=== PATIENT | female | born 1940 | race Caucasian/White ===

== ENCOUNTER 2018-08-24 12:38 | Observation (INO) | payer BC ==
[2018-08-24 12:44] VITALS: BMI 27.7
--- NOTE | 2018-08-24 14:29 | PDOC ---
History of Present Illness - General Chief Complaint: Blurry Vision Stated Complaint: RT EYE VISION BLURRY Time Seen by Provider: 08/24/18 13:36 History Source: Patient Exam Limitations: No Limitations - History of Present Illness Initial Comments: 08/24/18 14:05 This is a 77 YOF with h/o glaucoma, cataract replacement to left eye, 15 year h/ o headaches (very few in the past 3 years), TMJD, cervical disc bulges, and MRI done ~4 months ago (which the patient's neurosurgeon thought was concerning for mini-strokes but her neurologist disagreed and was not concerned) who p/w abrupt 4-minute episode of black defect in the upper visual holden of her right eye, which occurred at the end of druze about 30 minutes ago and resolved with two aspirin which she put under her tongue at the onset. She denies any additional symptoms: no f/c/n/v/d/c, CP/SOB, n/t/w, SOSA, neck pain, eye pain, recent falls/trauma, or any other recent symptoms. She has never had these symptoms before. She has an operater (Garret Cardona). NIH Stroke Scale - Last Known Well Date/Time & Onset Date Last Known Well: 08/24/18 Time Last Known Well: 13:00 - Initial Evaluation Level of consciousness: Alert Ask patient the month and their age: Answers both correctly Ask patient to open & close eyes; make fist and let go: Obeys both correctly Best gaze (horizontal eye movement): Normal Visual field testing: No visual field loss Facial paresis (Show teeth/raise eyebrows/close eyes tight): Normal symmetrical movement Motor Function: Left Arm: Normal Motor Function: Right Arm: Normal (extends arm 90 (or 45) degrees for 10 seconds without drift Motor Function: Left Leg: Normal (extends leg 30 degrees for 5 seconds without drift) Motor Function: Right Leg: Normal (extends leg 30 degrees for 5 seconds without drift) Limb Ataxia: No ataxia Sensory(Use pinprick test arms,legs,trunk,face/side to side): Normal Best language (Describe picture, name items, read sentences): No Aphasia Dysarthria (read several words): Normal articulation Extinction and Inattention: No abnormality - Total Score NIH Stroke Scale Score: 0 Past History - Past Medical History Allergies/Adverse Reactions: Allergies Allergy/AdvReac Type Severity Reaction Status Date / Time cat dander Allergy Verified 08/24/18 17:47 ASHOK Allergy Unknown Uncoded 08/24/18 17:29 CAT Allergy Uncoded 08/24/18 12:44 DUST Allergy Uncoded 08/24/18 12:44 MOLD Allergy Uncoded 08/24/18 12:44 Home Medications: Ambulatory Orders Ascorbic Acid [Vitamin C] 1 mg PO DAILY 09/25/13 Calcium Carbonate/Vitamin D3 [Calcium 600-Vit D3 200 Tablet] 1 each PO DAILY Docosahexanoic Acid/Epa [Fish Oil Softgel] 1 each PO DAILY 09/25/13 Flaxseed [Flaxseed Oil] 1,000 mg PO DAILY 09/25/13 Aspirin [ASA -] 325 mg PO DAILY #30 tablet 08/25/18 Atorvastatin Ca [Lipitor] 20 mg PO HS #30 tablet 08/25/18 Anemia: No Asthma: No Cancer: No Cardiac Disorders: No CVA: No COPD: No CHF: No Dementia: No GI Disorders: Yes (COLONIC POLYPS) Disorders: No HTN: No Hypercholesterolemia: No Liver Disease: No Seizures: No Thyroid Disease: No Other medical history: glaucoma - Surgical History Abdominal Surgery: Yes Appendectomy: No Cardiac Surgery: No Cholecystectomy: No Lung Surgery: No Neurologic Surgery: No Orthopedic Surgery: No - Suicide/Smoking/Psychosocial Hx Smoking History: Never smoked Have you smoked in the past 12 months: No If you are a former smoker, when did you quit?: 1973 Information on smoking cessation initiated: No Hx Alcohol Use: No Drug/Substance Use Hx: No Substance Use Type: None Review of Systems - Review of Systems Able to Perform ROS?: Yes Constitutional: No: Chills, Fever, Unexplained wgt Loss HEENTM: Yes: Recent change in vision (resolved). No: Nose Congestion, Throat Pain Respiratory: No: Cough, Shortness of Breath Cardiac (ROS): No: Chest Pain, Palpitations ABD/GI: No: Constipated, Diarrhea, Nausea, Vomiting : No: Burning, Dysuria Musculoskeletal: No: Back Pain, Neck Pain Integumentary: No: Bruising, Rash Neurological: No: Headache, Numbness, Tingling, Weakness, Dizziness Endocrine: No: Unexplained Weight Gain, Unexplained Weight Loss *Physical Exam - Vital Signs Last Vital Signs Temp Pulse Resp BP Pulse Ox 97.3 F L 73 18 132/70 99 08/24/18 12:39 08/24/18 12:39 08/24/18 12:39 08/24/18 12:39 08/24/18 12:39 08/24/18 18:12 GENERAL: nontoxic and well-appearing older adult female, nourished, A/Ox4, no acute distress, speaking in full sentences, answers questions appropriately HENT: Moist mucous membranes, no posterior pharyngeal erythema, no tonsillar swelling or exudates, no cervical lymphadenopathy EYES: Left cataract replacement with tiny iris deformity at 12 o'clock stated 2/ 2 the surgery, no scleral icterus or injection, visual holden all intact, able to track in all directions without difficulty or pain, EOMI, no nystagmus, PERRLA, funduscopic exam is difficult given lack of dilating drops (patient has stated h/o glaucoma), visual acuity 20/50 on the left and <20/50 on the right ( worse on the right), NECK: No midline ttp, no spinal stepoff or deformity, full ROM, supple CARDIOVASCULAR: Regular rate and rhythm, normal S1S2, MGR, radial and DP pulses 2+ and symmetric, capillary refill <2 seconds, extremities warm and well- perfused Chest wall: Right medial clavicle slight prominence which patient states is chronic, normal appearance, no rash, no bruising, no costal stepoff or deformity , nontender to compression LUNGS/RESPIRATORY: No respiratory distress, normal and symmetric chest movements during respirations, lungs CTA bilaterally, equal breath sounds, no cyanosis, no nail clubbing GI/ABDOMEN: Normal symmetric appearance, normoactive bowel sounds, soft, no tenderness to palpation, no midline pulsatile masses, no palpated organomegaly BACK: No midline ttp or stepoff or deformity of thoracic or lumbar spine EXTREMITIES: distal pulses 2+, warm and well-perfused, no LE edema SKIN: Warm and dry, no pallor, no jaundice, no bruising, no rash, no skin breakdown, no cuts, no lesions NEUROLOGICAL: GCS 15, NIHSS is 0, CN II-XII grossly intact EXCEPT there is moderate rightward deviation on tongue protrusion, ambulating with normal gait, moving all extremities, 5/5 strength proximally and distally, no facial droop, no decreased sensation Procedures - Bedside Ultrasound Bedside Ultrasound: Ocular Remarks: Study: right ocular US Indication: upper visual field blackness, since resolved Findings: lens appears normal without detachment, no retinal detachment, no e/o vitreous hemorrhage, nl optic nerve diameter Conclusion: normal right ocular ultrasound ED Treatment Course - LABORATORY CBC & Chemistry Diagram: 08/25/18 06:12 08/25/18 06:12 - RADIOLOGY Radiology Studies Ordered: Category Date Time Status CHEST X-RAY PORTABLE* [RAD] Stat Radiology 08/24/18 14:03 Ordered Medical Decision Making - Medical Decision Making 08/24/18 1430 Adult patient p/w acute onset right eye vision blackness to the upper visual holden. No additional symptoms, lasted about 4 minutes, she put 2 baby ASA under her tongue. Symptoms resolved now, never any prior similar episodes. Initial Vital Signs Temp Pulse Resp BP Pulse Ox 97.3 F L 73 18 132/70 99 08/24/18 12:39 08/24/18 12:39 08/24/18 12:39 08/24/18 12:39 08/24/18 12:39 Exam: As noted in Physical Exam section. DDX IBNLT: retinal tear/detachment, amarosis fugax, CVA/TIA, unlikely any of the following: vertebral or carotid dissection, subclavian steal, etc. W/U ordered: Head CT, CXR, EKG, labs as noted below. TX ordered: IV, O2, Monitor, IVF POCUS: normal right ocular US as noted in procedures EKG: Reviewed; results as noted in ECG Review section. CXR: Nothing acute Laboratory Tests 08/24/18 08/24/18 08/24/18 14:20 14:20 14:20 WBC 4.1 RBC 4.13 Hgb 13.6 Hct 39.0 MCV 94.3 MCH 32.8 MCHC 34.8 RDW 13.4 Plt Count 172 MPV 8.0 Absolute Neuts (auto) 2.5 Neutrophils % 61.0 Lymphocytes % 28.3 Monocytes % 7.8 Eosinophils % 2.3 Basophils % 0.6 Nucleated RBC % 0 PT with INR 11.20 INR 0.99 Sodium 137 Potassium 4.3 Chloride 103 Carbon Dioxide 31 Anion Gap 3 L BUN 20 H Creatinine 0.7 Creat Clearance w eGFR > 60 Random Glucose 89 Calcium 8.9 Total Bilirubin 0.4 AST 27 ALT 27 Alkaline Phosphatase 76 Total Protein 7.6 Albumin 4.0 08/24/18 15:59 Reassessment: Patient states no recurrence of symptoms, repeat neuro exam unchanged. 08/24/18 17:[address] Banuelos who also is concerned for amarosis fugax. Recommends Aggranox, ESR, CRP r/o GCA; these are ordered. Also Tele/Obs. Microblog is sent to [facility] for admission (for PCP Dr. Harmeet Franks). Blank Decision to Admit order is placed. Consult order placed for Dr. Banuelos. 08/24/18 18:[address] I [address] over to [address] department to check on the status of the patient's study. sleep lab technologist on states that there ate a total of 5-6 people waiting in line. Awaiting results of head CT to admit patient. 08/24/18 18:[address] Banuelos (who is seeing the patient in the ED) the head CT is negative for acute pathology. The Pt is unsafe for discharge at this time. They require further hospital observation, workup, and treatment. Microblog sent to [facility] for admission. Blank Decision to Admit order is placed per ED protocol. Patient needs Tele Obs per Dr. Banuelos. 08/24/18 19:16 Spoke with admitting team member services representative Judah Salvador. In agreement Pt to be admitted. Decision to Admit order corrected with admitting team covering attendings name (Dr. Lainez). Dr. Banuelos here seeing the patient in the ED. He kindly wheels her back from CT. Final report HCT is negative for acute pathology. Repeat NIHSS is still 0. *DC/Admit/Observation/Transfer Diagnosis at time of Disposition: Vision loss of right eye - Discharge Dispostion Condition at time of disposition: Stable Decision to Admit order: Yes - Prescriptions - Referrals - Patient Instructions - Post Discharge Activity
[2018-08-24 14:34] LABS: BASO % 0.6 % (0-2.0); EOS % 2.3 % (0-4.5); HEMOGLOBIN 13.6 GM/dL (10.7-15.3); LYMPH % 28.3 % (8-40); MCH 32.8 pg (25.7-33.7); MCHC 34.8 g/dl (32.0-36.0); MEAN CELL VOLUME 94.3 fl (80-96); MONO % 7.8 % (3.8-10.2); PLATELET COUNT 172 K/MM3 (134-434); RBC 4.13 M/mm3 (3.60-5.2); RDW 13.4 % (11.6-15.6); WHITE BLOOD COUNT 4.1 K/mm3 (4.0-10.0)
[2018-08-24 14:55] LABS: INR 0.99 (0.83-1.09); PROTHROMBIN TIME (PATIENT) 11.2 SEC (9.7-13.0)
--- NOTE | 2018-08-24 15:07 | PDOC ---
Attending Attestation - Resident Resident Name: Nelly Marquis - ED Attending Attestation I have performed the following: I have examined & evaluated the patient, The case was reviewed & discussed with the resident, I agree w/resident's findings & plan, Exceptions are as noted - HPI HPI: 08/24/18 14:58 The patient is a 77 year old female with past medical history of hyperlipidemia , b/l glaucoma, left cataract surgery, who presents to the ED after an episode of transient loss of vision about 30 minutes prior to arrival. Patient states she was [place] [employer] when she experienced darkening of her vision in the upper, lower and lateral visual holden of her R eye. She states the episode lasted four minutes and resolved on its own. She denies any other associated symptoms at the time and reports taking two aspirin en route to the hospital. In the ED, she reports her vision has improved but saw some flashes of light in her right eye but denies any other visual changes, headaches, or focal neurological deficits. Denies any chest pain, SOB, fevers or chills. Foreman/Project Manager: Dr. Garret Albarran - Physicial Exam PE: 08/24/18 14:59 GENERAL: Awake, alert, and fully oriented, in no acute distress. HEAD: No signs of trauma EYES: PERRLA, EOMI, sclera anicteric, conjunctiva clear, visual holden intact ENT: Auricles normal inspection, hearing grossly normal, nares patent, oropharynx clear without exudates. Moist mucosa NECK: Nontender, no stepoffs, Normal ROM, supple, no lymphadenopathy, JVD, or masses LUNGS: Breath sounds equal, clear to auscultation bilaterally. No wheezes, and no crackles HEART: Regular rate and rhythm, normal S1 and S2, no murmurs, rubs or gallops ABDOMEN: Soft, nontender, normoactive bowel sounds. No guarding, no rebound. No masses EXTREMITIES: Normal range of motion, no edema. No clubbing or cyanosis. No cords, erythema, or tenderness NEUROLOGICAL: Cranial nerves II through XII intact. 5/5 strength and sensation in all extremities, Normal speech, normal gait, normal cerebellar function SKIN: Warm, Dry, normal turgor, no rashes or lesions noted. - Medical Decision Making 08/24/18 15:00 77 F with transient visual disturbance in R eye, now resolved. Pt with no visual field deficits currently. Suspect retinal detachment. Pt with no eye pain or other signs of acute glaucoma. Possible amaurosis fugax, though pt has no other neuro deficits. Neurologically non-focal on exam. - Labs - CT head - Bedside ocular US 08/24/18 18:15 Ocular US unremarkable. Labs wnl 08/24/18 18:44 CT normal Discussed case with Dr. Banuelos, who recommends tele obs admission for CVA work up
[2018-08-24 15:08] LABS: ALK PHOS 76 U/L (45-117); ANION GAP 3 MMOL/L (8-16); BILIRUBIN,TOTAL 0.4 mg/dL (0.2-1); BLOOD UREA NITROGEN 20 mg/dL (7-18); CALCIUM 8.9 mg/dL (8.5-10.1); CHLORIDE 103 mmol/L (98-107); CO2 31 mmol/L (21-32); CREATININE 0.7 mg/dL (0.55-1.3); GLUCOSE,RANDOM 89 mg/dL (74-106); POTASSIUM 4.3 mmol/L (3.5-5.1); SGOT/AST 27 U/L (15-37); SGPT/ALT 27 U/L (13-61); SODIUM 137 mmol/L (136-145); TOT PROT 7.6 g/dl (6.4-8.2)
--- NOTE | 2018-08-24 16:59 | EKG ---
Test Reason : Blood Pressure : / mmHG Vent. Rate : 062 BPM Atrial Rate : 062 BPM P-R Int : 170 ms QRS Dur : 072 ms QT Int : 376 ms P-R-T Axes : 058 -10 013 degrees QTc Int : 381 ms POOR DATA QUALITY, INTERPRETATION MAY BE ADVERSELY AFFECTED NORMAL SINUS RHYTHM SEPTAL INFARCT , AGE UNDETERMINED ABNORMAL ECG NO PREVIOUS ECGS AVAILABLE Confirmed by MD Joni, Waylon ([id number]) on 08/24/2018 4:58:33 PM Referred By: Confirmed By:Waylon Quinones MD
[2018-08-24] MEDS ORDERED: ASPIRIN/DIPYRIDAMOLE 25 MG/200 MG CAPSULE (FP) PO ONE (17:21)
[2018-08-24] MEDS ORDERED: ASPIRIN/DIPYRIDAMOLE 25 MG/200 MG CAPSULE (FP) ONE (18:40)
--- NOTE | 2018-08-24 20:08 | CON.NEURO ---
Consult Consult Specialty:: Lakisha Referred by:: ED - History of Present Illness History of Present Illness: this is a 77-year-old right-handed female patient right-handed with significant medical history 1. Coronary artery disease. 2. Migraine headache. 3. Cataracts. 4. Glaucoma. 5. Cervical radiculopathy. 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 According to her she felt difficulty with the right eye patient describes darkness involving mostly the right eye and to lesser extent the left eye!. Patient denies any true headache no flash of light no loss of consciousness no speech alteration patient stop the car into traffic when to the back of the car to her pocketbook and took 2 aspirin. Patient does not take aspirin on a daily basis. Patient drove herself to the emergency room of [facility]. At the hospital stroke protocol was initiated. CAT scan of the head I reviewed myself on March the patient back from the CAT scan revealed no evidence of acute pathology. Patient NIH stroke scale was 0. Patient was not a candidate for thrombolysis patient denies any headache no chest pain or palpitation. EKG was sinus rhythm. - History Source History Provided By: Patient Limitations to Obtaining History: No Limitations - Alcohol/Substance Use Hx Alcohol Use: No - Smoking History Smoking history: Never smoked Have you smoked in the past 12 months: No If you are a former smoker, when did you quit?: 1974 Home Medications - Allergies Allergies/Adverse Reactions: Allergies Allergy/AdvReac Type Severity Reaction Status Date / Time cat dander Allergy Verified 08/24/18 17:47 ASHOK Allergy Unknown Uncoded 08/24/18 17:29 CAT Allergy Uncoded 08/24/18 12:44 DUST Allergy Uncoded 08/24/18 12:44 MOLD Allergy Uncoded 08/24/18 12:44 - Home Medications Home Medications: Ambulatory Orders Ascorbic Acid [Vitamin C] 1 mg PO DAILY 09/25/13 Calcium Carbonate/Vitamin D3 [Calcium 600-Vit D3 200 Tablet] 1 each PO DAILY Docosahexanoic Acid/Epa [Fish Oil Softgel] 1 each PO DAILY 09/25/13 Flaxseed [Flaxseed Oil] 1,000 mg PO DAILY 10/25/13 Family Disease History - Family Disease History Family History: Denies (strokes) Review of Systems - Review of Systems Constitutional: reports: No Symptoms Eyes: reports: No Symptoms Neurological: reports: No Symptoms Physical Exam-Neuro Vital Signs: Vital Signs Temperature 98.1 F 08/24/18 19:40 Pulse Rate 65 08/24/18 19:40 Respiratory Rate 16 08/24/18 19:40 Blood Pressure 160/85 08/24/18 19:40 O2 Sat by Pulse Oximetry (%) 100 08/24/18 19:40 Constitutional: Yes: Well Nourished Neck: Yes: WNL Labs: CBC, BMP 08/24/18 14:20 08/24/18 14:20 INR, PTT INR 0.99 (0.83-1.09) 08/24/18 14:20 - Neuro Exam Level Of Consciousness: Yes: Oriented to Person, Oriented to Place, Oriented to Time Eyes: Yes: PERRLA Speech: WNL Dominant Hand: Right Cranial Nerves II-XII Intact: Yes Gag: Present DTR's: 1+ Left Bicep, 1+ Right Bicep, 1+ Left Brachioradialis, 1+ Right Brachioradialis Response to light touch: Normal Response to pain prick: Normal Response to temperature: Normal Response to vibration: Normal Motor Strength: 3/5: Left Arm, Right Arm, Left Leg, Right Leg Gait: Deferred Imaging - Results Cat Scan: Image Reviewed Problem List - Problems (1) Vision loss of right eye Assessment/Plan: initially when I spoke to the emergency room physician I was under the impression that this is amaurosis fugax/TIA to the right ophthalmic artery when I interviewed the patient patient claims that she had some symptoms also in the left eye which makes me think more of an occipital lesion as an ischemic event. Patient risk for strokes include migraine over 70 coronary artery disease. Neurological differential diagnoses #1 amaurosis fugax. #2 stroke prevention. #3 complicated migraine headache. Plan: 1. Neuro check 2. ASA Antiplatelet 3. Fall precautions 4, Am lipid 5. PT 5. Dysphagia protocol 6. Statin 7. Echo 8. Stroke education: weight loss 9. SCDs units 10. MRI of the brain with no Asad I thank you for getting me involved in the is patient neurological care Thank you Code(s): H54.61 - UNQUALIFIED VISUAL LOSS, RIGHT EYE, NORMAL VISION LEFT EYE
--- NOTE | 2018-08-24 20:27 | HP ---
CHIEF COMPLAINT: transient vision loss PCP: Dr Franks HISTORY OF PRESENT ILLNESS: 77 y/o female with PMH of CAD, glaucoma, L eye cataract surgery, history of migranes presents to the ED after having a 4 minute episode of transient right lower and side eye loss. She states she was coming out of [employer], was driving down the street and all of the sudden she loss lower vision in her right eye. She pulled the car over, took 2 aspirin and the symptoms went away and she came right over to the hospital. In the past she state that when she used to get her menstrual cycles she would see some wavy lines and has slight blurred vision, but that hasnt happened since she stopped her menstrual cycles. She denies any headaches/numbness or tingling, chest pain or SOB. ER course was notable for: (1) labs unremarkable (2)beside ocular U/S shows no retinal detachment ; patient given aggrenox (3)head CT shows no acute pathology Recent Travel: none PAST MEDICAL HISTORY: see above PAST SURGICAL HISTORY: L cataract surgery Social History: Smoking: former smoker; stopped smoking 30 years ago Alcohol:denies Drugs: denies Family History: mother from colon ca; father from lung ca; both grandparents had heart issues Allergies cat dander Allergy (Verified 08/24/18 17:47) ASHOK Allergy (Unknown, Uncoded 08/24/18 17:29) CAT Allergy (Uncoded 08/24/18 12:44) DUST Allergy (Uncoded 08/24/18 12:44) MOLD Allergy (Uncoded 08/24/18 12:44) HOME MEDICATIONS: Home Medications Medication Instructions Recorded Ascorbic Acid [Vitamin C] 1 mg PO DAILY 09/25/13 Calcium Carbonate/Vitamin D3 1 each PO DAILY 09/25/13 [Calcium 600-Vit D3 200 Tablet] Docosahexanoic Acid/Epa [Fish Oil 1 each PO DAILY 09/25/13 Softgel] Flaxseed [Flaxseed Oil] 1,000 mg PO DAILY 09/25/13 REVIEW OF SYSTEMS CONSTITUTIONAL: Absent: fever, chills, diaphoresis, generalized weakness, malaise, loss of appetite, weight change HEENT: Present: visual changes Absent: rhinorrhea, nasal congestion, throat pain, throat swelling, difficulty swallowing, mouth swelling, ear pain, eye pain, CARDIOVASCULAR: Absent: chest pain, syncope, palpitations, irregular heart rate, lightheadedness , peripheral edema RESPIRATORY: Absent: cough, shortness of breath, dyspnea with exertion, orthopnea, wheezing, stridor, hemoptysis GASTROINTESTINAL: Absent: abdominal pain, abdominal distension, nausea, vomiting, diarrhea, constipation, melena, hematochezia GENITOURINARY: Absent: dysuria, frequency, urgency, hesitancy, hematuria, flank pain, genital pain MUSCULOSKELETAL: Absent: myalgia, arthralgia, joint swelling, back pain, neck pain SKIN: Absent: rash, itching, pallor HEMATOLOGIC/IMMUNOLOGIC: Absent: easy bleeding, easy bruising, lymphadenopathy, frequent infections ENDOCRINE: Absent: unexplained weight gain, unexplained weight loss, heat intolerance, cold intolerance NEUROLOGIC: Absent: headache, focal weakness or paresthesias, dizziness, unsteady gait, seizure, mental status changes, bladder or bowel incontinence PSYCHIATRIC: Absent: anxiety, depression, suicidal or homicidal ideation, hallucinations. PHYSICAL EXAMINATION Vital Signs - 24 hr 08/24/18 08/24/18 12:39 19:40 Temperature 97.3 F L 98.1 F Pulse Rate 73 Pulse Rate [ 65 Left Radial] Respiratory 18 16 Rate Blood Pressure 132/70 Blood Pressure 160/85 [Right Arm] O2 Sat by Pulse 99 100 Oximetry (%) GENERAL: Awake, alert, and fully oriented, in no acute distress. EYES: Pupils equal, round and reactive to light, extraocular movements intact, sclera anicteric, conjunctiva clear. No lid lag. NECK:NO JDV appreciated LUNGS:CTA B/L; no rales, rhonchi or wheezing. HEART: Regular rate and rhythm, normal S1 and S2 without murmur, rub or gallop. ABDOMEN: Soft, nontender, not distended, normoactive bowel sounds, no guarding, no rebound, no masses. No hepatomegaly or splenomegaly. MUSCULOSKELETAL: Normal range of motion at all joints. No bony deformities or tenderness. No CVA tenderness. EXTREMITIES: warm; well-perfused; no clubbing/cyanosis/edema NEUROLOGICAL: Cranial nerves II-XII intact. Normal speech. Normal gait. 5/5 strength B/L UE and LE; sensation fully intact B/L PSYCHIATRIC: Cooperative. Good eye contact. Appropriate mood and affect. SKIN: Warm, dry, normal turgor, no rashes or lesions noted, normal capillary refill. Laboratory Results - last 24 hr 08/24/18 08/24/18 08/24/18 14:20 14:20 14:20 WBC 4.1 RBC 4.13 Hgb 13.6 Hct 39.0 MCV 94.3 MCH 32.8 MCHC 34.8 RDW 13.4 Plt Count 172 MPV 8.0 Absolute Neuts (auto) 2.5 Neutrophils % 61.0 Lymphocytes % 28.3 Monocytes % 7.8 Eosinophils % 2.3 Basophils % 0.6 Nucleated RBC % 0 PT with INR 11.20 INR 0.99 Sodium 137 Potassium 4.3 Chloride 103 Carbon Dioxide 31 Anion Gap 3 L BUN 20 H Creatinine 0.7 Creat Clearance w eGFR > 60 Random Glucose 89 Calcium 8.9 Total Bilirubin 0.4 AST 27 ALT 27 Alkaline Phosphatase 76 Total Protein 7.6 Albumin 4.0 ASSESSMENT/PLAN: 77 y/o female with PMH of CAD, glaucoma, L cataract surgery, migraine history presents to the ED with transient right lower vision loss lasting minutes that was relieved when taking 2 aspirin. # right eye vision loss ocular u/s done ruled out retinal detachment and head CT showed no acute pathology -Dr Banuelos consulted and saw patient in ED; recs appreciated -MRI brain ordered -carotid dopplers ordered -echo pending -lipid panel; HbA1c -Thyroid function tests -neuro checks q4H -ASA 325 starting tomorrow -Statin therapy DVT Prophylaxis: SCD"s until TIA is ruled out F/E/N not on standing fluids replete electrolytes when necessary regular diet dispo: tele-obs Problem List - Problem (1) Vision loss of right eye Code(s): H54.61 - UNQUALIFIED VISUAL LOSS, RIGHT EYE, NORMAL VISION LEFT EYE Visit type - Emergency Visit Emergency Visit: Yes Care time: The patient presented to the Emergency Department on the above date and was hospitalized for further evaluation of their emergent condition. - New Patient This patient is new to me today: Yes Date on this admission: 08/24/18 - Critical Care Critical Care patient: No Hospitalist Screening - Colonoscopy Questionnaire Colonoscopy Questionnaire: Colonoscopy Questionnaire - Patient: 50 - 75 years old and never had a screening colonoscopy: Unknown History of colon or rectal polyps, or CA: Unknown History of IBD, Crohn's disease or UC: Unknown History of abdominal radiation therapy as a child: Unknown - Relative: 1 with colon or rectal CA, or polyps at age 60 or younger: Unknown Colon or rectal CA diagnosed at age 45 or younger: Unknown Multiple relatives with colon or rectal CA: Unknown - Outcome: Screening Result: Negative Screen
[2018-08-24] MEDS ORDERED: ATORVASTATIN CA 10 MG TABLET (FP) ONE (22:57)
[2018-08-24] MEDS: ATORVASTATIN CA 20 MG TABLET (FP) PO SCH (23:20)
--- NOTE | 2018-08-24 23:21 | PN ---
Teaching Attending Note Name of Resident: Candice San ATTENDING PHYSICIAN STATEMENT I saw and evaluated the patient. I reviewed the resident's note and discussed the case with the resident. I agree with the resident's findings and plan as documented. SUBJECTIVE: OBJECTIVE: ASSESSMENT AND PLAN: this is a 77 y/o female admitted for vison loss TIA vs migraine aura that resolved prior to coming to the hospital plan: neurlogy evaluation TSH carotid doppler total cholesterol admit to tele A1C echocardiogram
[2018-08-25 06:58] LABS: BASO % 0.6 % (0-2.0); EOS % 2.5 % (0-4.5); HEMATOCRIT 37.4 % (32.4-45.2); HEMOGLOBIN 12.8 GM/dL (10.7-15.3); LYMPH % 33.6 % (8-40); MCH 32.2 pg (25.7-33.7); MCHC 34.2 g/dl (32.0-36.0); MEAN CELL VOLUME 94.1 fl (80-96); MEAN PLT VOLUME 8.2 fl (7.5-11.1); MONO % 8.9 % (3.8-10.2); NEUT % 54.4 % (42.8-82.8); PLATELET COUNT 160 K/MM3 (134-434); RBC 3.98 M/mm3 (3.60-5.2); RDW 13.4 % (11.6-15.6); WHITE BLOOD COUNT 3.7 K/mm3 (4.0-10.0)
[2018-08-25 07:44] LABS: BLOOD UREA NITROGEN 24 mg/dL (7-18); CHLORIDE 105 mmol/L (98-107); CO2 28 mmol/L (21-32); CREATININE 0.7 mg/dL (0.55-1.3); GLUCOSE,RANDOM 93 mg/dL (74-106); POTASSIUM 4.3 mmol/L (3.5-5.1); SODIUM 139 mmol/L (136-145)
[2018-08-25 07:45] LABS: ALBUMIN 3.5 g/dl (3.4-5.0); ALK PHOS 62 U/L (45-117); ANION GAP 7 MMOL/L (8-16); BILIRUBIN,TOTAL 0.3 mg/dL (0.2-1); CALCIUM 8.3 mg/dL (8.5-10.1); MAGNESIUM 2.2 mg/dL (1.8-2.4); PHOSPHOROUS 4.1 mg/dL (2.5-4.9); SGOT/AST 22 U/L (15-37); SGPT/ALT 21 U/L (13-61); TOT PROT 6.7 g/dl (6.4-8.2)
[2018-08-25] MEDS: ASPIRIN 325 MG TABLET PO SCH (10:16)
--- NOTE | 2018-08-25 14:49 | PN ---
Teaching Attending Note Name of Resident: Keren Garcia ATTENDING PHYSICIAN STATEMENT I saw and evaluated the patient. I reviewed the resident's note and discussed the case with the resident. I agree with the resident's findings and plan as documented. SUBJECTIVE:asymptomatic. no assoc symptoms with vision loss. has had black spots in the past but nothing like event yesterday. denies Cp, SOB, fever, chills, N/V/C/D OBJECTIVE: Last Vital Signs Temp Pulse Resp BP Pulse Ox 97.5 F L 73 18 117/59 L 97 08/25/18 09:21 08/25/18 09:21 08/25/18 09:21 08/25/18 09:21 08/25/18 09:21 General NAD HEENT EOMI, PERRL, no nystagmus CV S1 S2 RRR no murmur/rub/gallop Neuro CN II- XII grossly intact, strength and sensation grossly intact in all 4 extremities. no pronator drift. negative dysmetria, normal gait ASSESSMENT AND PLAN: 77yo F wtih PMH CAD, gluacoma, and recent L cataract surgery presented to the Er after sudden loss of VIsion in the R eye which resolved after several minutes 1. Sudden vision loss-TIA vs amarosis fugax. carotid doppler negative. CT negative for acute pathology. TSH and RPR negative. f/u Echo and MRI. neuro on board. will make appt to see opthamologist this week (Dr Hinojosa). started on full dose ASA/statin. 2. CAD- not on preventative medications at home. started on asa/statin 3. glaucoma 4. DVT ppx- EAM 5. can d/c home pending results of MRI and echo
--- NOTE | 2018-08-25 17:50 | ECHO ---
Name: JERI MCQUEEN Exam:Adult Echocardiogram Study Date: 08/25/2018 09:20 AM Age: 77 yrs Reason For Study: TIA Height: 60 in Weight: 142 lb BSA: 1.6 m2 BP: 117/59 mmHg MMode/2D Measurements & Calculations IVSd: 0.81 cm Ao root diam: 2.8 cm LVIDd: 3.3 cm LA dimension: 2.6 cm LVIDs: 2.3 cm LVPWd: 0.82 cm EDV(Teich): 45.6 ml LVOT diam: 2.0 cm ESV(Teich): 19.1 ml TAPSE: 1.3 cm RV S Kristopher: 11.3 cm/sec Doppler Measurements & Calculations MV E max kristopher: 51.3 cm/sec TR max kristopher: 221.2 cm/sec MV A max kristopher: 71.6 cm/sec TR max P.7 mmHg MV E/A: 0.72 PI end-d kristopher: 72.7 cm/sec Med Peak E' Kristopher: 4.8 cm/sec Med E/e': 10.7 Lat Peak E' Kristopher: 8.6 cm/sec Lat E/e': 6.0 Procedure The study was technically limited with all images being suboptimal in quality. Left Ventricle The left ventricle is normal in size. Ejection Fraction = 65-70%. Left ventricular systolic function is normal. Grade I diastolic dysfunction, (abnormal relaxation pattern). Right Ventricle The right ventricle is normal in size and function. Atria Normal left and right atrial size and function. Mitral Valve The mitral valve is normal in structure and function. There is mild mitral regurgitation. Tricuspid Valve The tricuspid valve is not well visualized, but is grossly normal. There is moderate to severe tricus pid regurgitation. Right ventricular systolic pressure is 23 mmhg. Aortic Valve The aortic valve opens well. The aortic valve is trileaflet. No aortic regurgitation is present. Pulmonic Valve The pulmonic valve is not well visualized. Great Vessels The aortic root is normal size. Pericardium/Pleura There is no pericardial effusion. Interpretation Summary There is no comparison study available. The left ventricle is normal in size. Ejection Fraction = 65-70%. The right ventricle is normal in size and function. Mathew Albrecht MD 08/25/2018 05:49 PM
--- NOTE | 2018-08-25 18:43 | PN ---
Physical Exam: SUBJECTIVE: Patient seen and examined at bedside this morning. No acute events overnight. Patient has no more episodes of the vision loss or any other symptoms. OBJECTIVE: Vital Signs Period Temp Pulse Resp BP Sys/Dickson Pulse Ox Last 24 Hr 97.3 F-98.9 F 59-73 16-18 106-160/56-85 97-100 GENERAL: The patient is awake, alert, and fully oriented, in no acute distress. HEAD: Normal with no signs of trauma. EYES: PERRLA, EOMI, sclera anicteric, conjunctiva clear. ENT: Ears normal, nares patent, oropharynx clear without exudates, moist mucous membranes. NECK: Trachea midline, full range of motion, supple. LUNGS: Breath sounds equal, clear to auscultation bilaterally. HEART: Regular rate and rhythm, S1, S2 without murmur, rub or gallop. ABDOMEN: Soft, nontender, nondistended, normoactive bowel sounds. EXTREMITIES: 2+ pulses, warm, well-perfused, no edema. NEUROLOGICAL: Cranial nerves II through XII grossly intact. Normal speech, normal gait. SKIN: Warm, dry, normal turgor, no rashes or lesions noted Laboratory Results - last 24 hr 08/24/18 08/24/18 08/24/18 19:45 19:50 20:15 WBC RBC Hgb Hct MCV MCH MCHC RDW Plt Count MPV Absolute Neuts (auto) Neutrophils % Lymphocytes % Monocytes % Eosinophils % Basophils % Nucleated RBC % ESR 10 Sodium Potassium Chloride Carbon Dioxide Anion Gap BUN Creatinine Creat Clearance w eGFR Random Glucose Hemoglobin A1c % Calcium Phosphorus Magnesium Total Bilirubin AST ALT Alkaline Phosphatase C-Reactive Protein < 0.3 Total Protein Albumin Triglycerides Cholesterol Total LDL Cholesterol HDL Cholesterol Vitamin B12 17583 H TSH RPR Titer 08/24/18 08/25/18 08/25/18 20:15 06:12 06:12 WBC RBC Hgb Hct MCV MCH MCHC RDW Plt Count MPV Absolute Neuts (auto) Neutrophils % Lymphocytes % Monocytes % Eosinophils % Basophils % Nucleated RBC % ESR Sodium Potassium Chloride Carbon Dioxide Anion Gap BUN Creatinine Creat Clearance w eGFR Random Glucose Hemoglobin A1c % Calcium Phosphorus Magnesium Total Bilirubin AST ALT Alkaline Phosphatase C-Reactive Protein Total Protein Albumin Triglycerides 105 111 Cholesterol 236 H 201 H Total LDL Cholesterol 140 H 129 H HDL Cholesterol 72 H 65 H Vitamin B12 TSH 1.85 2.24 RPR Titer Nonreactive 08/25/18 08/25/18 08/25/18 06:12 06:12 06:12 WBC 3.7 L RBC 3.98 Hgb 12.8 Hct 37.4 MCV 94.1 MCH 32.2 MCHC 34.2 RDW 13.4 Plt Count 160 MPV 8.2 Absolute Neuts (auto) 2.0 Neutrophils % 54.4 Lymphocytes % 33.6 Monocytes % 8.9 Eosinophils % 2.5 Basophils % 0.6 Nucleated RBC % 0 ESR Sodium 139 Potassium 4.3 Chloride 105 Carbon Dioxide 28 Anion Gap 7 L BUN 24 H Creatinine 0.7 Creat Clearance w eGFR > 60 Random Glucose 93 Hemoglobin A1c % 5.2 Calcium 8.3 L Phosphorus 4.1 Magnesium 2.2 Total Bilirubin 0.3 AST 22 ALT 21 Alkaline Phosphatase 62 C-Reactive Protein Total Protein 6.7 Albumin 3.5 Triglycerides Cholesterol Total LDL Cholesterol HDL Cholesterol Vitamin B12 TSH RPR Titer Active Medications Generic Name Dose Route Start Last Admin Trade Name Freq PRN Reason Stop Dose Admin Aspirin 325 mg 08/25/18 10:00 08/25/18 10:16 Asa - PO 325 mg DAILY SUHA Administration Atorvastatin Calcium 20 mg 08/24/18 22:00 08/24/18 23:20 Lipitor - PO 20 mg HS SUHA Administration ASSESSMENT/PLAN: Patient is a 77 y/o female with PMH of CAD, glaucoma, L cataract surgery, migraine history presents to the ED with transient right lower vision loss lasting minutes that was relieved when taking 2 aspirin. # right eye vision loss -ocular u/s - ruled out retinal detachment -head CT showed no acute intacranial pathology -Neurology (Dr. Banuelos) consulted. Recommendations appreciated. -MRI brain pending official read. -carotid dopplers - mild atherosclerosis with no hemodynamically significant stenosis. -echo -normal EF, RV and LV normal size and function -lipid panel: TG 111, Chol 201, LDL 129, HDL 65 -HbA1c: 5.2 -Thyroid function tests: pending -neuro checks q4H -ASA 325 daily -Atorvastatin 20mg daily #FEN -not on any standing fluids -electrolytes wnl -regular diet #Prophylaxis -patient is active and moving around. -no PPX indicated. #Disposition -obs -for discharge pending MRI read Visit type - Emergency Visit Emergency Visit: Yes ED Registration Date: 08/24/18 Care time: The patient presented to the Emergency Department on the above date and was hospitalized for further evaluation of their emergent condition. - New Patient This patient is new to me today: Yes Date on this admission: 08/25/18 - Critical Care Critical Care patient: No
[2018-08-25] MEDS: ATORVASTATIN CA 20 MG TABLET (FP) PO SCH (22:11)
--- NOTE | 2018-08-26 08:13 | PN ---
Teaching Attending Note Name of Resident: Keren Garcia ATTENDING PHYSICIAN STATEMENT I reviewed the resident's note and discussed the case with the resident. I agree with the resident's findings and plan as documented with exceptions below. SUBJECTIVE: No concerns overnight. OBJECTIVE: Vital Signs Period Temp Pulse Resp BP Sys/Dickson Pulse Ox Last 24 Hr 97.3 F-98.9 F 53-73 18-20 106-142/55-69 97-99 Intake & Output 08/23/18 08/24/18 08/25/18 08/26/18 23:59 23:59 23:59 23:59 Intake Total 400 Balance 400 Weight 142 lb 142 lb Home Medications Medication Instructions Recorded Ascorbic Acid [Vitamin C] 1 mg PO DAILY 09/25/13 Calcium Carbonate/Vitamin D3 1 each PO DAILY 09/25/13 [Calcium 600-Vit D3 200 Tablet] Docosahexanoic Acid/Epa [Fish Oil 1 each PO DAILY 09/25/13 Softgel] Flaxseed [Flaxseed Oil] 1,000 mg PO DAILY 09/25/13 Aspirin [ASA -] 325 mg PO DAILY #30 tablet 08/25/18 Atorvastatin Ca [Lipitor] 20 mg PO HS #30 tablet 08/25/18 Active Medications Aspirin (Asa -) 325 mg PO DAILY SUHA Last Admin: 08/25/18 10:16 Dose: 325 mg Atorvastatin Calcium (Lipitor -) 20 mg PO HS SUHA Last Admin: 08/25/18 22:11 Dose: 20 mg Laboratory Results - last 24 hr 08/25/18 08/25/18 06:12 06:12 Hemoglobin A1c % 5.2 RPR Titer Nonreactive MRI brain and 2D echo results reviewed. Carotid DUplex and CT head results reviewed. EKG noted - NSR, QS in V1-V2 ASSESSMENT AND PLAN: 77yo F wtih PMH CAD, gluacoma, and recent L cataract surgery presented to the Er after sudden loss of VIsion in the R eye and transiently in left eye which resolved after several minutes -Sudden visual loss, TIA vs amarousis fugax -Dyslipidemia -Recent Left cataract surgery -Glaucoma -Migraine headaches -CAD Plan: Neurology input noted. Imaging and 2D echo noted. Continue ASA/statin. outpatient opthalmology follow up. Avoid driving till further cleared by PCP no further events. D/c home today with outpatient follow up
[2018-08-26] MEDS: ASPIRIN 325 MG TABLET PO SCH (08:31)
--- NOTE | 2018-08-26 09:49 | DS ---
Physical Exam: SUBJECTIVE: Patient seen and examined at bedside this morning. No acute events overnight. Patient has no new complaints and has remained asymptomatic. OBJECTIVE: Vital Signs Period Temp Pulse Resp BP Sys/Dickson Pulse Ox Last 24 Hr 97.3 F-98.9 F 53-68 18-20 106-142/55-69 97-99 PHYSICAL EXAM GENERAL: The patient is awake, alert, and fully oriented, in no acute distress. HEAD: Normal with no signs of trauma. EYES: PERRLA, EOMI, sclera anicteric, conjunctiva clear. ENT: Ears normal, nares patent, oropharynx clear without exudates, moist mucous membranes. NECK: Trachea midline, full range of motion, supple. LUNGS: Breath sounds equal, clear to auscultation bilaterally. HEART: Regular rate and rhythm, S1, S2 without murmur, rub or gallop. ABDOMEN: Soft, nontender, nondistended, normoactive bowel sounds. EXTREMITIES: 2+ pulses, warm, well-perfused, no edema. NEUROLOGICAL: Cranial nerves II through XII grossly intact. Normal speech, normal gait. SKIN: Warm, dry, normal turgor, no rashes or lesions noted LABS Laboratory Results - last 24 hr 08/25/18 06:12 RPR Titer Nonreactive Imaging Brain MRI without contrast Moderate atrophy and periventricular chronic microvascular ischemic disease changes without gross evidence of acute intracranial pathology. No acute infarct identified. Carotid Doppler US Mild atherosclerotic disease with no evidence of hemodynamically significant stenosis. Head CT without constrast No evidence of acute intracranial hemorrhage, edema, midline shift, mass effect, or skull fracture. No CT evidence of acute territorial ischemic changes. Chest Xray No evidence of airspace consolidation, pulmonary vascular congestion or pleural effusion. Echo - normal EF, RV and LV normal size and function HOSPITAL COURSE: Date of Admission:08/24/18 Date of Discharge: 08/26/18 Patient is a 77 year old female with past medical history of CAD, glaucoma, L cataract surgery, and a 15-year migraine history, presented to the ED with transient right lower vision loss lasting a few minutes that was relieved after taking 2 aspirin tablets. Patient was admitted for possible TIA, rule out stroke or any ocular emergencies. Neurology was consulted. Ocular ultrasound, Head CT scan, Carotid doppler, Echo, and Brain MRI done. All imaging were negative for any acute pathology. Lipid panel revealed hyperlipidemia, A1c at 5.2. Patient was started on Aspirin 325mg daily and Atorvastatin 20mg HS. Patient was discharged with instructions to follow-up with primary care doctor and her transitions rn care coordinator. Minutes to complete discharge: 40 Discharge Summary Reason For Visit: VISION LOSS OF RT EYE Condition: Stable - Instructions Diet, Activity, Other Instructions: You came in because you had sudden loss of vision on your right eye that lasted a few minutes. Work-ups were done to rule out stroke and eye emergencies. Eye ultrasound, Head CAT scan, Echo and carotid doppler were done and were normal. Your brain MRI was also normal. You probably had a transient ischemic attack, a "mini-stroke", where there's a clot that blocked an artery that limited blood flow to the brain, that got pushed along or broken down, and normal blood flow returned to your brain. Your cholesterol was noted to be elevated. It is important to control your cholesterol to prevent complications such as stroke and heart disease. We have started you on 2 medications: 1. Aspirin 325 mg daily. 2. Atorvastatin 20mg daily at bedtime. You will continue taking these medications at home. The Atorvastatin you will take once every night because this can cause drowsiness. If you notice any new muscle aches or pain, new belly pain, jaundice or new concerns on this medication, please stop the medication and call your doctor. DO NOT DRIVE TILL FURTHER CLEARED BY YOUR DOCTOR. Please follow-up with your transitions rn care coordinator, Dr. Albarran, within 1 week. Please follow-up with your primary care doctor within 1 week. Call 911 or go to ED if with any worsening blurred vision, headache, fever, chills, or any new concerns noted. Referrals: Harmeet Franks MD [Primary Care Provider] - Garret Albarran MD [Staff Physician] - Disposition: HOME - Home Medications Comprehensive Discharge Medication List: Ambulatory Orders Ascorbic Acid [Vitamin C] 1 mg PO DAILY 09/25/13 Calcium Carbonate/Vitamin D3 [Calcium 600-Vit D3 200 Tablet] 1 each PO DAILY Docosahexanoic Acid/Epa [Fish Oil Softgel] 1 each PO DAILY 09/25/13 Flaxseed [Flaxseed Oil] 1,000 mg PO DAILY 09/25/13 Aspirin [ASA -] 325 mg PO DAILY #30 tablet 09/24/18 Atorvastatin Ca [Lipitor] 20 mg PO HS #30 tablet 08/25/18 This patient is new to me today: Yes Date on this admission: 08/26/18 Emergency Visit: Yes ED Registration Date: 08/24/18 Care time: The patient presented to the Emergency Department on the above date and was hospitalized for further evaluation of their emergent condition. Critical Care patient: No - Discharge Referral Referred to [facility] No
[2018-08-26 16:26] VITALS: BP 114/72; PULSE 74; TEMP 97.6
== END 2018-08-26 09:26 | disposition home or self-care (01) ==
LOC: JER 12:38 → JERBED 18:56 → J4W 08-25 19:43
PROVIDERS: ADMIT Internal Medicine; ATTEND Hospitalist
DX: H54.61 Unqualified visual loss, right eye, normal vision left eye (principal); I25.10 Atherosclerotic heart disease of native coronary artery without angina pectoris; H40.9 Unspecified glaucoma; M54.12 Radiculopathy, cervical region; Z79.82 Long term (current) use of aspirin; E78.5 Hyperlipidemia, unspecified; Z86.69 Personal history of other diseases of the nervous system and sense organs
CPT/HCPCS: 36415; 70450-TC; 70551-TC; 71045-TC-FY; 80053; 80061; 82607; 83036; 83090; 83721; 83735; 84100; 84443; 85025; 85610; 85651; 86038; 86140; 86593; 93005; 93010; 93306-TC; 93880-TC; 99284-25; G0378

== ENCOUNTER 2018-10-14 17:33 | Emergency (ER) | payer BC ==
--- NOTE | 2018-10-14 17:56 | PDOC ---
Rapid Medical Evaluation Time Seen by Provider: 10/14/18 17:53 Medical Evaluation: Allergies Allergy/AdvReac Type Severity Reaction Status Date / Time cat dander Allergy Verified 08/24/18 17:47 ASHOK Allergy Unknown Uncoded 08/24/18 17:29 CAT Allergy Uncoded 08/24/18 12:44 DUST Allergy Uncoded 08/24/18 12:44 MOLD Allergy Uncoded 08/24/18 12:44 I have performed a brief in-person evaluation of this patient. The patient presents with a chief complaint of: pulled groin a few weeks ago. worsened pain today. sent in for hernia evaluation Pertinent physical exam findings: right groin pain I have ordered the following: labs, UA The patient will proceed to the ED for further evaluation. Discharge Disposition - Diagnosis Groin pain - Referrals - Patient Instructions - Post Discharge Activity
[2018-10-14 17:57] VITALS: BP 142/52; PULSE 84; TEMP 98.6; BMI 27.7
[2018-10-14 19:01] LABS: BASO % 0.5 % (0-2.0); EOS % 1.7 % (0-4.5); HEMATOCRIT 41.8 % (32.4-45.2); HEMOGLOBIN 13.8 GM/dL (10.7-15.3); MCH 31.6 pg (25.7-33.7); MEAN CELL VOLUME 95.7 fl (80-96); MEAN PLT VOLUME 7.6 fl (7.5-11.1); NEUT % 64.8 % (42.8-82.8); PLATELET COUNT 203 K/MM3 (134-434); RBC 4.37 M/mm3 (3.60-5.2); RDW 13.1 % (11.6-15.6); WHITE BLOOD COUNT 4.8 K/mm3 (4.0-10.0)
[2018-10-14 19:03] LABS: URINE APPEARANCE CLEAR; URINE BILIRUBIN NEGATIVE (<2.0 mg/dL); URINE COLOR STRAW; URINE GLUCOSE (UA) NEGATIVE (NEGATIVE); URINE KETONE NEGATIVE (NEGATIVE); URINE LEUK ESTERASE NEGATIVE (NEGATIVE); URINE NITRITE NEGATIVE (NEGATIVE); URINE PROTEIN NEGATIVE (NEGATIVE); URINE UROBILINOGEN NEGATIVE mg/dL (0.2-1.0)
--- NOTE | 2018-10-14 19:15 | PDOC ---
Attending Attestation - Resident Resident Name: Alexandria Meier - ED Attending Attestation I have performed the following: I have examined & evaluated the patient, The case was reviewed & discussed with the resident, I agree w/resident's findings & plan, Exceptions are as noted - HPI HPI: 10/14/18 19:14 77 yo female has had rt groin pain for past several days, no nausea and no vomiting - Physicial Exam PE: 10/14/18 19:15 wnwd 77 yo female p/w rt groin pain head ncat neck supple lungs cta b/l cvs [id number] abd no rebound,no guarding rt suprapubic tenderness to palpitation, no hernia appreciated neuro axox3 - Medical Decision Making 10/14/18 20:47 pelvic US is normal with no evidence of masses,ovarian torsion or significant fibroids imp groin pain vs strain UA is negative plan 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
--- NOTE | 2018-10-14 19:24 | PDOC ---
History of Present Illness - General Chief Complaint: Pain, Acute Stated Complaint: POSSIBLE HERNIA Time Seen by Provider: 10/14/18 17:53 - History of Present Illness Initial Comments: Molly Dumont is a 77yo woman with a PMH of HLD, glaucoma, and recent TIA (Aug 2018) who presents with right inguinal pain that has worsened over the past two weeks. She states that she initially had an injury to about 2 weeks ago. She was sitting on the toilet and reached up suddenly to turn on the light. She initially had pain mostly in her lower back, though there was a little right inguinal pain at that time. She called her primary doctor and was prescribed flexeril and ibuprofen BID for suspected muscle pain/spasm, and she has been going to physical therapy. Her back pain resolved after a few days, and her inguinal pain was minimal until yesterday at 8pm. Since then, she has had continued right groin pain. She says that the pain is constant and non- radiating. She says that she thinks the 400mg ibuprofen helped her pain somewhat. At this time, it has "calmed down" somewhat. Ms Dumont says that she did have some nausea and constipation immediately following the injury, but she thinks that may have been from her back pain. She took a suppository and has not had any constipation since. She denies any hematochezia or melena, abdominal pain, nausea/vomiting, inability to tolerate PO, fevers, or chills. She has not noticed any lumps or bumps in the groin. She did have a surgery to remove a chocolate ovarian cyst 50 years ago and was told at that time that "they repaired a hernia" but she does not know any additional information. She presented to the ED today because she went to physical therapy, and they told her that they could not help as she might have a hernia. Past History - Past Medical History Allergies/Adverse Reactions: Allergies Allergy/AdvReac Type Severity Reaction Status Date / Time cat dander Allergy Verified 10/14/18 17:54 ASHOK Allergy Unknown Uncoded 10/14/18 17:54 CAT Allergy Uncoded 10/14/18 17:54 DUST Allergy Uncoded 10/14/18 17:54 MOLD Allergy Uncoded 10/14/18 17:54 Home Medications: Ambulatory Orders Ascorbic Acid [Vitamin C] 1 mg PO DAILY 09/25/13 Calcium Carbonate/Vitamin D3 [Calcium 600-Vit D3 200 Tablet] 1 each PO DAILY Docosahexanoic Acid/Epa [Fish Oil Softgel] 1 each PO DAILY 09/25/13 Aspirin [ASA -] 325 mg PO DAILY #30 tablet 08/25/18 Atorvastatin Ca [Lipitor] 20 mg PO HS #30 tablet 08/25/18 Anemia: No Asthma: No Cancer: No Cardiac Disorders: No CVA: No COPD: No CHF: No Dementia: No GI Disorders: Yes (COLONIC POLYPS) Disorders: No HTN: No Hypercholesterolemia: No Liver Disease: No Seizures: No Thyroid Disease: No - Surgical History Abdominal Surgery: Yes Appendectomy: No Cardiac Surgery: No Cholecystectomy: No Lung Surgery: No Neurologic Surgery: No Orthopedic Surgery: No - Immunization History Immunization Up to Date: Yes - Suicide/Smoking/Psychosocial Hx Smoking History: Never smoked Have you smoked in the past 12 months: No If you are a former smoker, when did you quit?: 1973 Information on smoking cessation initiated: No Hx Alcohol Use: No Drug/Substance Use Hx: No Substance Use Type: None Hx Substance Use Treatment: No Review of Systems - Review of Systems Comments:: General: No fevers, no chills, no weight or appetite change, no malaise HEENT: No changes in vision, no changes in hearing, no congestion, no sore throat CV: No chest pain, no palpitations, no LE edema Pulm: No SOB, no cough, no wheezing GI: No nausea or vomiting, no change in bowel habits, no melena : No frequency, no urgency, no dysuria Musc: See HPI. Recent back spasm/injury, groin pain Skin: No rash, no lesions, no erythema Endo: No excessive thirst, no heat/cold intolerance Heme: No unusual bruising or bleeding, no swollen glands Neuro: No syncope, no numbness/tingling, no focal weakness. +recent TIA Vasc: No claudication Psych: No recent change in mood, no SI or HI *Physical Exam - Vital Signs Last Vital Signs Temp Pulse Resp BP Pulse Ox 98.6 F 84 16 142/52 L 96 10/14/18 17:54 10/14/18 17:54 10/14/18 17:54 10/14/18 17:54 10/14/18 17:54 - Physical Exam Comments: General: Comfortable, no acute distress HEENT: PERRL, EOMI, MMM, voice normal, normal neck ROM, no LAD Cards: RRR, no murmur appreciated Pulm: Comfortable on room air, clear to auscultation bilaterally Abd: Soft, nontender, nondistended. R groin without bulge, palpable hernia, erythema, edema, induration, fluctuance, crepitus, or tenderness. Back: Nontender, no step-offs, no deformities : No CVA tenderness Ext: Atraumatic. No LE edema. ROM intact. Strength 5/5 and equal bilaterally Vasc: Extremities WWP. Palpable radial and pedal pulses bilaterally Skin: Normal color, no rashes or lesions Neuro: A&Ox3, CN grossly intact, normal speech, motor/sensory grossly intact and symmetric Psych: Mood appropriate to situation ED Treatment Course - LABORATORY CBC & Chemistry Diagram: 10/14/18 18:56 10/14/18 18:56 - ADDITIONAL ORDERS Additional order review: Laboratory Results 10/14/18 10/14/18 18:56 18:56 WBC 4.8 RBC 4.37 Hgb 13.8 Hct 41.8 MCV 95.7 MCH 31.6 MCHC 33.0 RDW 13.1 Plt Count 203 D MPV 7.6 Absolute Neuts (auto) 3.1 Neutrophils % 64.8 Lymphocytes % 24.0 D Monocytes % 9.0 Eosinophils % 1.7 Basophils % 0.5 Nucleated RBC % 0 Urine Color Straw Urine Appearance Clear Urine pH 7.0 Ur Specific [place] 1.010 Urine Protein Negative Urine Glucose (UA) Negative Urine Ketones Negative Urine Blood Negative Urine Nitrite Negative Urine Bilirubin Negative Urine Urobilinogen Negative Ur Leukocyte Esterase Negative 10/14/18 18:56 RBC 4.37 MCV 95.7 MCHC 33.0 RDW 13.1 MPV 7.6 Neutrophils % 64.8 Lymphocytes % 24.0 D Monocytes % 9.0 Eosinophils % 1.7 Basophils % 0.5 - RADIOLOGY Radiology Studies Ordered: Category Date Time Status TRANSVAGINAL ULTRASOUND US [US] Stat Ultrasound 10/14/18 19:13 Ordered Medical Decision Making - Medical Decision Making 10/14/18 19:24 Molly Dumont is a 77yo woman with no relevant medical history who presents with right groin pain for two weeks after an injury to her right groin and low back. The back pain has resolved, but the right inguinal pain suddenly worsened yesterday evening. She was told she may have a hernia. - No associated symptoms concerning for incarcerated or non-reducible hernia including constipation, nausea, abdominal pain. Physical exam without bulge or defect, erythema, or TTP. Low suspicion for hernia - Has a history of endometriosis "50 years ago" and ovarian cyst removal. Transvaginal US ordered to evaluate R ovary. - CBC, CMP, UA, UCx ordered in RME. - Declined pain medication at this time. 10/14/18 21:34 - Labs without any abnormalities. UA negative - Ultrasound without any ovarian or pelvic pathology noted - Discussed results with Ms Dumont. Plan to discharge home, pain is most likely musculoskeletal in nature. She may continue to use NSAIDS, heat/ice as previously recommended by her PMD. She should follow up with her PMD within the next 2-3 days. She states understanding and agreement. - Will give 30mg IV toradol for pain prior to discharge as Ms Dumont states that she wound normally have taken her pain medication at home Seen and discussed with Dr Leary. Alexandria Meier PGY1 *DC/Admit/Observation/Transfer Diagnosis at time of Disposition: Groin pain - Discharge Dispostion Disposition: HOME Condition at time of disposition: Stable Decision to Admit order: No - Referrals Referrals: Harmeet Franks MD [Primary Care Provider] - - Patient Instructions Printed Discharge Instructions: DI for Musculoskeletal Pain Additional Instructions: Discharge Instructions: - You were seen in the emergency room for worsening pain in your right groin. - Blood tests and an ultrasound were normal. There was no sign of infection, ovarian abnormality, or other cause of your pain. You were not found to have a hernia on physical exam. - Your pain is most likely due to a muscle spasm or pulled muscle. - For pain control, you may use the naproxen (Aleve) previously prescribed/ recommended by your primary physician. You may also use acetaminophen (Tylenol) two tablets every 6 hours as needed for continued pain. If the cyclobenzaprine prescribed by your primary physician seems to help your pain, you may continue taking that as well. - Use heat or ice packs to help with your pain (either is fine) - Stretching or continued physical therapy will likely help your pain resolve over time - Call your primary doctor tomorrow to schedule a follow up appointment for within the next 2-3 days. - Seek medical care if you have severe constipation along with vomiting, inability to eat or drink - especially if you notice that the right groin is very red, visibly swollen, and extremely painful to touch. Also seek medical care if you have worsening weakness or numbness/tingling in your leg, inability to control urinating or bowel movements, or if you have any medical emergency. - Post Discharge Activity
[2018-10-14 19:30] LABS: ALBUMIN 4.7 g/dl (3.4-5.0); ALK PHOS 77 U/L (45-117); ANION GAP 8 MMOL/L (8-16); BILIRUBIN,TOTAL 0.4 mg/dL (0.2-1); BLOOD UREA NITROGEN 14 mg/dL (7-18); CALCIUM 8.9 mg/dL (8.5-10.1); CHLORIDE 102 mmol/L (98-107); CO2 30 mmol/L (21-32); CREATININE 0.7 mg/dL (0.55-1.3); GLUCOSE,RANDOM 103 mg/dL (74-106); POTASSIUM 4.1 mmol/L (3.5-5.1); SGOT/AST 25 U/L (15-37); SGPT/ALT 28 U/L (13-61); SODIUM 139 mmol/L (136-145)
[2018-10-14] MEDS ORDERED: KETOROLAC TROMETHAMINE 30 MG/1 ML VIAL IVPUSH ONE (21:25)
[2018-10-14] MEDS ORDERED: KETOROLAC TROMETHAMINE 30 MG/1 ML VIAL ONE (21:47)
== END 2018-10-14 22:42 | disposition home or self-care (01) ==
LOC: JER 17:33
PROC: 3E0333Z Introduction of Anti-inflammatory into Peripheral Vein, Percutaneous Approach (ICD-10-PCS; principal; 2018-10-14)
DX: R10.31 Right lower quadrant pain (principal); H40.9 Unspecified glaucoma; Z86.73 Personal history of transient ischemic attack (TIA), and cerebral infarction without residual deficits; E78.00 Pure hypercholesterolemia, unspecified; Z86.010 Personal history of colon polyps
CPT/HCPCS: 36415; 76830-TC; 80053; 81003; 85025; 87086; 96374; 99283-25

== ENCOUNTER 2018-12-17 06:11 | Day surgery (SDC) | payer BC ==
--- NOTE | 2018-12-09 10:55 | HP ---
DATE OF ADMISSION: 12/17/2018 REASON FOR ADMISSION: Right inguinal hernia. BRIEF HISTORY: This is a 78-year-old female who 2 weeks ago got up to turn off the light and in doing so this twisting motion caused her a sharp pain in the right groin region. That persisted. The patient was seen by her primary care physician and managed medically and ultimately sent for physical therapy. She was also seen by the orthopedist who evaluated and due to her pain had ordered an MRI of the abdomen and groin region. The MRI demonstrated findings consistent with a right inguinal hernia. She was referred here for further evaluation. The patient has had no nausea or vomiting. She does feel a lump in the right groin. She has no change in bowel habits. PAST MEDICAL HISTORY: Significant for questionable TIA, hypercholesterolemia, arthritic changes, unspecified eye disease and peptic ulcer disease. PAST SURGICAL HISTORY: The patient has had a Pfannenstiel incision for management of a large chocolate ovarian cyst. She has also had a hernia repair in the right groin in 1973. MEDICATIONS: She takes a baby aspirin, atorvastatin, a multitude of vitamins. ALLERGIES: DUST, MOLD, CHEMICALS and PERFUME. No known drug allergies. SOCIAL HISTORY: The patient does not smoke, nor does she drink. PHYSICAL EXAMINATION: Abdomen: Obese, soft, nontender, nondistended. She has a well-healed Pfannenstiel scar. She also has a right inguinal hernia easily reducible in a supine position. On the left there is no obvious hernia but I suspect she may have a small hernia there as well, but exam is limited due to body habitus. IMPRESSION/PLAN: Right inguinal hernia, possible left inguinal hernia: This is a 78-year-old female who is symptomatic from a right inguinal hernia. At this point I would recommend repairing the right inguinal hernia. On exam she is also noted to have significant weakness in the left groin and a small left inguinal hernia cannot be entirely ruled out. Since I am not sure she has an obvious hernia on the left, this can be delayed until further symptoms. The patient will be scheduled for an open right inguinal hernia repair, possible mesh. The indications, alternatives and complications of the procedure discussed and questions answered. Will plan on obtaining written consent the day of surgery. KATERIN SMITH M.D. [id number] MTDD
[2018-12-16 11:56] VITALS: BMI 28.8
[2018-12-17] MEDS ORDERED: SUCCINYLCHOLINE CHLORIDE 200 MG/10 ML VIAL ONE (06:55)
[2018-12-17] MEDS ORDERED: DEXAMETHASONE SOD PHOSPHATE 4 MG/1 ML VIAL ONE (06:55)
[2018-12-17] MEDS ORDERED: PROPOFOL 20 ML ONE ×2 (06:55→09:48)
[2018-12-17] MEDS ORDERED: ROCURONIUM BROMIDE 50 MG/5 ML VIAL ONE ×2 (06:55→10:15)
[2018-12-17] MEDS ORDERED: ONDANSETRON 4 MG/2 ML VIAL ONE (06:55)
[2018-12-17] MEDS ORDERED: LIDOCAINE HCL/PF 2% SDV 5ML VIAL ONE (06:55)
[2018-12-17] MEDS ORDERED: MIDAZOLAM HCL 2 MG/2 ML SINGLE DOSE VIAL ONE ×4 (06:55→07:36)
[2018-12-17] MEDS ORDERED: fentaNYL CITRATE 250 MCG/5 ML VIAL ONE (06:55)
[2018-12-17] MEDS ORDERED: ceFAZolin SODIUM 1 GM VIAL ONE ×2 (06:59→09:56)
[2018-12-17] MEDS ORDERED: CLINDAMYCIN PHOSPHATE 600 MG/4 ML VIAL ONE (06:59)
[2018-12-17] MEDS ORDERED: BUPIVACAINE HCL/PF 0.5% (5MG/ML) 10 ML VIAL ONE (07:34)
[2018-12-17] MEDS ORDERED: ceFAZolin SODIUM 1 GM VIAL IVPB ONE (08:20)
[2018-12-17] MEDS ORDERED: ePHEDrine SULFATE 50 MG/1 ML AMPULE ONE (08:29)
[2018-12-17] MEDS ORDERED: GLYCOPYRROLATE 0.2 MG/1 ML VIAL ONE (09:01)
[2018-12-17] MEDS ORDERED: NEOSTIGMINE METHYLSULFATE 0.5 MG/1 ML - 10 ML MDV ONE (09:01)
[2018-12-17 09:56] VITALS: TEMP 97.5
[2018-12-17] MEDS ORDERED: LACTATED RINGERS SOLUTION 1,000 ML IV SCH (10:00)
[2018-12-17] MEDS ORDERED: oxyCODONE HCL 5 MG TABLET PO PRN (10:00)
[2018-12-17] MEDS ORDERED: ONDANSETRON 4 MG/2 ML VIAL IVPUSH PRN (10:00)
--- NOTE | 2018-12-17 10:02 | OP ---
DATE OF OPERATION: 12/17/2018 PREOPERATIVE DIAGNOSIS: Right inguinal hernia. POSTOPERATIVE DIAGNOSIS: Right indirect inguinal hernia. PROCEDURE: Open right inguinal herniorrhaphy with mesh, 8-cm intermediate wound closure. SURGEON: Stanton Martini MD CAN RECONDITIONER: Yusef Brower MD ANESTHESIA: Berna Plummer MD, general. ESTIMATED BLOOD LOSS: Minimal. SPECIMENS: Round ligament. INDICATION FOR PROCEDURE: This is a 78-year-old female symptomatic from a lump in the right groin consistent with a right inguinal hernia. She is now here for operative repair. DESCRIPTION OF PROCEDURE: Patient identified and appropriately positioned on the operating room table. After placement of general anesthesia, abdomen prepped and draped in the usual sterile fashion with ChloraPrep. An 8-cm right inguinal incision was made, deepened to subcutaneous tissue. Jasvir's was divided sharply, the fascia of the external oblique divided in the direction of its fibers through the external ring. The inguinal nerve identified and reflected medially. The round ligament and hernia were subsequently isolated at the level of the pubic tubercle. The hernia itself was back to the level of the internal ring and consistent with an indirect inguinal hernia. The round ligament was subsequently clamped, divided, and tied with a 3-0 Vicryl suture. The inguinal floor on the medial superior aspect was markedly attenuated and stretched out. Therefore, a mesh plug was placed in the preperitoneal space beneath the inguinal floor and then anchored with interrupted 0 Prolene sutures. The inguinal floor was then subsequently reconstructed in a standard Bassini fashion, bringing the conjoint tendon over towards the inguinal ligament/Poupart's ligament. This was done with interrupted 0 Prolene sutures. Upon closure, the internal ring was completely obliterated. Upon closure of the inguinal floor, palpation of the floor revealed an adequate amount of tension. It was not too tight. The inguinal nerve returned to its anatomic position. The fascia of the external oblique reapproximated with a running 3-0 Vicryl suture, Jasvir's reapproximated with interrupted inverted 3-0 Vicryl sutures, and skin closed with 4-0 Biosyn followed by Dermabond the length of the incision, approximately 8 cm. At the conclusion of the case, sponge and needle counts correct. ATTESTATION: Brief operative note handwritten on the preprinted form. [facility] will be queried prior to giving any narcotics. Hadley JACKSON [id number]
[2018-12-17] MEDS ORDERED: ADENOSINE 6 MG/2 ML VIAL IVPUSH ONE (11:36)
[2018-12-17 12:28] VITALS: BP 120/65; PULSE 68
--- NOTE | 2018-12-24 16:05 | PATH ---
Surgical Pathology Report Patient Name: JERI MCQUEEN [facility]. Rec. #: [id number] /Age/Gender: 1940 (Age: 78) / F Account: [id number] Location: [facility] SURGICAL Taken: 12/17/2018 Received: 12/17/2018 Reported: 12/24/2018 Physicians: Stanton Martini Specimen(s) Received ROUNG LIGAMENT Clinical History Right inguinal hernia Final Diagnosis ROUND LIGAMENT, EXCISION: FIBROCONNECTIVE TISSUE WITH FOCAL BENIGN EPITHELIAL INCLUSION. Comment: The inclusions are lined by benign, focal ciliated columnar epithelium. No cellular atypia present. The epithelium is positive for AE1/AE3. Immunostains WT-1, D2-40, and Calretinin are noncontributory. WT-1, D2-40, and Calretinin were performed at [place], [place] ([id number]) and interpreted at [facility] AE1/AE3 was performed and interpreted at [facility]. Positive and negative controls (internal if applicable) show appropriate results. Electronically Signed Uma Delgado M.D. Gross Description Received in formalin labeled "round ligament," is a 2.0 x 1.3 x 0.6 cm vital brown portion of fibrous tissue, possibly consistent with a ligament. The specimen is sectioned and entirely submitted in one cassette. DL/12/17/2018 saudi12/17/2018
== END 2018-12-17 13:30 | disposition home or self-care (01) ==
LOC: JASU-SURG 06:11
PROVIDERS: ATTEND Surgery
PROC: 0YU50JZ Supplement Right Inguinal Region with Synthetic Substitute, Open Approach (ICD-10-PCS; principal; 2018-12-17 08:00)
DX: K40.90 Unilateral inguinal hernia, without obstruction or gangrene, not specified as recurrent (principal)
CPT/HCPCS: 88304-TC; 88342-TC; 94760

== ENCOUNTER 2019-06-12 09:10 | Day surgery (SDC) | payer BC, OTHER ==
[2019-06-11 13:40] VITALS: BMI 28.8
[2019-06-12 11:49] VITALS: TEMP 97
[2019-06-12 12:26] VITALS: BP 131/53; PULSE 58
--- NOTE | 2019-06-15 18:54 | PATH ---
Surgical Pathology Report Patient Name: JERI MCQUEEN [facility]. Rec. #: [id number] /Age/Gender: 1940 (Age: 78) / F Account: [id number] Location: [facility] Taken: 06/12/2019 Received: 06/12/2019 Reported: 06/15/2019 Physicians: Adoer Feliz M.D. Specimen(s) Received CECAL POLYP Clinical History Rectal bleeding, adenoma surveillance, family history of colon cancer Postoperative diagnosis: Diverticulosis, cecal polyp Final Diagnosis CECAL POLYP, BIOPSY: POLYPOID COLONIC MUCOSA WITH FOCAL MILD SUPERFICIAL HYPERPLASTIC FEATURES. Electronically Signed Treasure Abebe M.D. Gross Description Received in formalin, labeled "biopsy cecal polyp" are 2 vital, irregular portions of soft tissue measuring 0.3 and 0.4 cm. in greatest dimension. The specimens are submitted in toto in one cassette. /06/12/2019 saudi/06/12/2019
== END 2019-06-12 12:33 | disposition home or self-care (01) ==
LOC: JASU-ENDO 09:10
PROVIDERS: ATTEND Internal Medicine Gastroenterology
PROC: 0DBH8ZX Excision of Cecum, Via Natural or Artificial Opening Endoscopic, Diagnostic (ICD-10-PCS; principal; 2019-06-12 10:15)
DX: Z12.11 Encounter for screening for malignant neoplasm of colon (principal); D12.0 Benign neoplasm of cecum; K57.30 Diverticulosis of large intestine without perforation or abscess without bleeding; K64.8 Other hemorrhoids; Z86.010 Personal history of colon polyps
CPT/HCPCS: 88305-TC

== ENCOUNTER 2024-06-10 04:44 | Day surgery (SDC) | payer OTHER ==
[2024-06-03 08:42] VITALS: BMI 30.1
[2024-06-10 11:52] VITALS: BP 133/61; PULSE 52; RESP 20; TEMP 98
== END 2024-06-10 12:25 | disposition home or self-care (01) ==
LOC: JASU-ENDO 04:44
PROVIDERS: ATTEND Internal Medicine Gastroenterology
PROC: 0DBL8ZX Excision of Transverse Colon, Via Natural or Artificial Opening Endoscopic, Diagnostic (ICD-10-PCS; principal; 2024-06-10 10:00)
DX: Z12.11 Encounter for screening for malignant neoplasm of colon (principal); D12.3 Benign neoplasm of transverse colon; K57.30 Diverticulosis of large intestine without perforation or abscess without bleeding; K64.8 Other hemorrhoids; Z86.010 Personal history of colon polyps
CPT/HCPCS: 88305-TC

== ENCOUNTER 2024-07-06 18:55 | Emergency (ER) | payer OTHER ==
[2024-07-06 19:26] VITALS: BP 167/70; PULSE 58; RESP 16; TEMP 98.2; BMI 29.2
== END 2024-07-06 19:56 | disposition home or self-care (01) ==
LOC: FER 18:55
DX: S86.912A Strain of unspecified muscle(s) and tendon(s) at lower leg level, left leg, initial encounter (principal); X58.XXXA Exposure to other specified factors, initial encounter
CPT/HCPCS: 93971-TC; 99284-25